=== PATIENT | female | born 1990 | race Two or more races ===

== ENCOUNTER 2022-02-25 10:23 | Emergency (ER) | payer OTHER ==
[~2022-02-25] VITALS: Ht 160 cm; Wt 98.6 kg
[2022-02-25] MEDS ORDERED: IBUPROFEN 600 MG TABLET PO ONE (10:45)
[2022-02-25] MEDS ORDERED: METH-624 PO (10:49)
[2022-02-25] MEDS ORDERED: HYDR-4527 PO (10:49)
[2022-02-25] MEDS ORDERED: BUPR-345 PO (10:49)
[2022-02-25 13:40] VITALS: BP 132/81
== END 2022-02-25 13:43 | disposition home or self-care (01) ==
LOC: EMS 10:23
DX: S93.402A Sprain of unspecified ligament of left ankle, initial encounter (principal); F32.A Depression, unspecified; F90.9 Attention-deficit hyperactivity disorder, unspecified type; Z90.49 Acquired absence of other specified parts of digestive tract; Z88.8 Allergy status to other drugs, medicaments and biological substances; X58.XXXA Exposure to other specified factors, initial encounter; Y93.89 Activity, other specified; Y92.89 Other specified places as the place of occurrence of the external cause; Y99.8 Other external cause status
CPT/HCPCS: 99283